=== PATIENT | female | born 1985 | race Caucasian/White ===

== ENCOUNTER 2021-01-05 12:24 | Emergency (ER) | payer SELFPAY ==
[~2021-01-05] VITALS: Ht 162.5 cm; Wt 110.2 kg
[~2021-01-05 12:24] MED LIST: LEVOFLOXACIN500 MG PO; PRILOSEC20 MG PO; ZOFRAN4 MG PO
[2021-01-05 13:13] LABS: BASO # 0.1 10*3/uL (0.0-0.1); BASO % 0.8 % (0.0-1.0); EOS # 0.1 10*3/uL (0.0-0.4); EOS % 1.1 % (1.0-4.0); HEMATOCRIT 41.2 % (37.0-47.0); LYMPH # 2.3 10*3/uL (1.3-4.4); LYMPH % 22.5 % (27.0-41.0); MEAN CELL VOLUME 91.4 fl (81.0-99.0); MEAN CORPUSCULAR HGB 28.4 pg (27.0-31.0); MEAN CORPUSCULAR HGB CONC 31.1 g/dl (33.0-37.0); MEAN PLATELET VOLUME 9.2 fl (9.6-12.3); MONO # 0.6 10*3/uL (0.1-1.0); MONO % 5.7 % (3.0-9.0); NEUT # 7.1 10*3/uL (2.3-7.9); NEUT % 69.6 % (47.0-73.0); PLATELET COUNT AUTOMATED 478 10*3/uL (130-400); RED BLOOD COUNT 4.51 10*6/uL (4.10-5.10); RED CELL DISTRI WIDTH 12.9 % (0-14.5); WHITE BLOOD COUNT 10.2 10*3/uL (4.8-10.8)
[2021-01-05 13:20] LABS: BILIRUBIN Negative (Negative); BLOOD 2+ (Negative); CLARITY Clear (Clear); COLOR Yellow (Yellow); GLUCOSE Negative (Negative); KETONE Negative (Negative); LEUKO ESTERASE 1+ (Negative); NITRITE Negative (Negative); UROBILINOGEN 0.2 E.U./dl (0.0-1.0)
[2021-01-05 13:29] LABS: ACT PARTIAL THROMBO TIME 26.1 SECONDS (20.0-32.1); INTERNATIONAL NORM RATIO 0.9 (2.0-3.5)
[2021-01-05 13:32] LABS: ALKALINE PHOSPHATASE 84 U/L (45-117); BUN 15 mg/dl (7-24); CHLORIDE 107 mmol/L (98-107); CREATININE 0.66 mg/dL (0.55-1.02); POTASSIUM 4.4 mmol/L (3.5-5.1); SGOT/AST 18 IU/L (3-35); SGPT/ALT 38 U/L (12-78); SODIUM 142 mmol/L (136-145); TOTAL PROTEIN 8.3 gm/dL (6.4-8.2)
[2021-01-05 13:38] LABS: BACTERIA 4+; EPITHELIAL CELLS 21-30; RBC 21-30 rbc/hpf (0-2); WBC 31-40 wbc/hpf (0-5)
[2021-01-05] MEDS ORDERED: LEVOFLOXACIN750 M2 PO (16:29)
[2021-01-05] MEDS ORDERED: PREDNISONE50 MG PO (16:30)
== END 2021-01-05 16:57 | disposition home or self-care (01) ==
LOC: ED 12:24
PROVIDERS: Nurse Practitioner
DX: N39.0 Urinary tract infection, site not specified (principal); Z88.6 Allergy status to analgesic agent; Z79.899 Other long term (current) drug therapy

== ENCOUNTER 2021-01-12 11:57 | Observation (INO) | payer SELFPAY ==
[~2021-01-12] VITALS: Ht 162.6 cm; Wt 114.8 kg
[~2021-01-12 11:57] MED LIST changes: +LEVOFLOXACIN750 M2 PO; +PREDNISONE50 MG PO
[2021-01-12 12:09] VITALS: BP 124/65
[2021-01-12 13:12] LABS: BASO # 0.1 10*3/uL (0.0-0.1); BASO % 0.7 % (0.0-1.0); EOS # 0.4 10*3/uL (0.0-0.4); EOS % 2.3 % (1.0-4.0); HEMATOCRIT 42.9 % (37.0-47.0); LYMPH # 3.2 10*3/uL (1.3-4.4); MEAN CELL VOLUME 90.3 fl (81.0-99.0); MEAN CORPUSCULAR HGB 28.6 pg (27.0-31.0); MEAN CORPUSCULAR HGB CONC 31.7 g/dl (33.0-37.0); MONO # 1.2 10*3/uL (0.1-1.0); MONO % 7.1 % (3.0-9.0); NEUT # 11.6 10*3/uL (2.3-7.9); NEUT % 69.4 % (47.0-73.0); PLATELET COUNT AUTOMATED 507 10*3/uL (130-400); RED BLOOD COUNT 4.75 10*6/uL (4.10-5.10); RED CELL DISTRI WIDTH 13.2 % (0-14.5); WHITE BLOOD COUNT 16.8 10*3/uL (4.8-10.8)
[2021-01-12 13:21] LABS: BILIRUBIN Negative (Negative); BLOOD Negative (Negative); CLARITY Clear (Clear); COLOR Yellow (Yellow); GLUCOSE Negative (Negative); KETONE Trace (Negative); LEUKO ESTERASE Trace (Negative); NITRITE Negative (Negative); SPECIFIC GRAVITY 1.025 (1.001-1.030); UROBILINOGEN 0.2 E.U./dl (0.0-1.0)
[2021-01-12 13:23] LABS: ACT PARTIAL THROMBO TIME 23.5 SECONDS (20.0-32.1); INTERNATIONAL NORM RATIO 0.9 (2.0-3.5)
[2021-01-12 13:28] LABS: ALBUMIN 3.3 gm/dl (3.1-4.5); ALKALINE PHOSPHATASE 68 U/L (45-117); BUN 17 mg/dl (7-24); CHLORIDE 104 mmol/L (98-107); CREATININE 0.69 mg/dL (0.55-1.02); LIPASE 47 U/L (73-393); POTASSIUM 4.3 mmol/L (3.5-5.1); SGOT/AST 24 IU/L (3-35); SGPT/ALT 53 U/L (12-78); SODIUM 137 mmol/L (136-145); TOTAL PROTEIN 7.3 gm/dL (6.4-8.2)
[2021-01-12 13:32] LABS: TROPONIN I < 0.015 ng/ml (<0.045)
[2021-01-12 13:33] LABS: BACTERIA 3+
[2021-01-12 14:43] VITALS: BP 113/56
[2021-01-12 16:20] VITALS: BP 142/43
[2021-01-12 16:45] VITALS: BP 127/70
[2021-01-12 20:00] VITALS: BP 121/62
[2021-01-13] VITALS: BP 123/70
[2021-01-13 06:25] LABS: HEMATOCRIT 38.4 % (37.0-47.0); MEAN CELL VOLUME 88.9 fl (81.0-99.0); MEAN CORPUSCULAR HGB 28.5 pg (27.0-31.0); MEAN PLATELET VOLUME 9.3 fl (9.6-12.3); PLATELET COUNT AUTOMATED 471 10*3/uL (130-400); RED BLOOD COUNT 4.32 10*6/uL (4.10-5.10); RED CELL DISTRI WIDTH 13.2 % (0-14.5); WHITE BLOOD COUNT 24.9 10*3/uL (4.8-10.8)
[2021-01-13 06:40] LABS: BUN 20 mg/dl (7-24); CHLORIDE 105 mmol/L (98-107); SODIUM 136 mmol/L (136-145)
[2021-01-13 06:52] LABS: CHOLESTEROL 215 mg/dL (<200); HDL CHOLESTEROL 64 mg/dl (40-60); LDL CHOLESTEROL 117 mg/dL (9-159); THYROID STIM HORMONE (HS) 0.813 uIU/ml (0.358-4.75); TRIGLYCERIDES 168 mg/dl (<150); VLDL CHOLESTEROL 34 mg/dL (6-40)
[2021-01-13 07:39] LABS: PLATELET SUFFICIENCY HIGH (NORMAL); TOTAL CELLS COUNTED 100 #CELLS
[2021-01-13 08:00] VITALS: BP 116/54
[2021-01-13 12:00] VITALS: BP 121/68
[2021-01-13] MEDS ORDERED: PREDNISONE50 MG PO (15:12)
== END 2021-01-13 14:33 | disposition home or self-care (01) ==
LOC: ED 11:57 → EDHOLD 15:40 → 4E 16:21
PROVIDERS: Family Medicine; Physician Assistant; ADMIT Internal Medicine; ATTEND Internal Medicine
DX: R07.2 Precordial pain (principal); Z20.822 Contact with and (suspected) exposure to COVID-19; F41.9 Anxiety disorder, unspecified; R01.1 Cardiac murmur, unspecified; J18.9 Pneumonia, unspecified organism; R91.1 Solitary pulmonary nodule; R06.00 Dyspnea, unspecified; D72.821 Monocytosis (symptomatic); R79.82 Elevated C-reactive protein (CRP); D47.3 Essential (hemorrhagic) thrombocythemia; Z98.890 Other specified postprocedural states

== ENCOUNTER → 2021-10-11 | Outpatient (CLI) | payer OTHER | END | disposition home or self-care (01) | LOC: COVID19 15:29 | PROVIDERS: ATTEND Internal Medicine | DX: U07.1 COVID-19 (principal) ==

== ENCOUNTER → 2022-12-13 | Outpatient (CLI) | payer OTHER | END | disposition home or self-care (01) | LOC: LAB 07:05 | PROVIDERS: ATTEND Nurse Practitioner | DX: R19.7 Diarrhea, unspecified (principal) ==

== ENCOUNTER → 2023-08-13 | Outpatient (CLI) | payer OTHER | END | disposition home or self-care (01) | LOC: CT 15:52 | PROVIDERS: ATTEND Nurse Practitioner | DX: R91.1 Solitary pulmonary nodule (principal) ==

== ENCOUNTER → 2024-07-28 | Outpatient (CLI) | payer OTHER ==
[2024-07-28 14:01] LABS: HEMATOCRIT 41.8 % (37.0-47.0); MEAN CELL VOLUME 93.7 fl (81.0-99.0); MEAN CORPUSCULAR HGB 29.6 pg (27.0-31.0); MEAN CORPUSCULAR HGB CONC 31.6 g/dl (33.0-37.0); MEAN PLATELET VOLUME 8.8 fl (9.6-12.3); PLATELET COUNT AUTOMATED 440 10*3/uL (130-400); RED BLOOD COUNT 4.46 10*6/uL (4.10-5.10); RED CELL DISTRI WIDTH 13.2 % (0-14.5); WHITE BLOOD COUNT 16.1 10*3/uL (4.8-10.8)
[2024-07-28 14:14] LABS: MANUAL DIFF REFLEX YES
[2024-07-28 14:30] LABS: ALKALINE PHOSPHATASE 64 U/L (46-116); BUN 18 mg/dl (9-23); CHLORIDE 102 mmol/L (98-107); POTASSIUM 4.2 mmol/L (3.4-5.1); SGPT/ALT 14 U/L (5-49); TOTAL PROTEIN 7.3 gm/dL (6.0-8.0)
[2024-07-28 14:31] LABS: VITAMIN D, 25-HYDROXY 23.1 ng/mL (30-100)
[2024-07-28 14:47] LABS: BASOPHILS 1 % (0-1); TOTAL CELLS COUNTED 100 #CELLS
[2024-07-28 14:48] LABS: BURR CELLS FEW; PLATELET SUFFICIENCY HIGH (NORMAL)
[2024-07-29 08:10] LABS: HEPATITIS B SURFACE AB Non Reactive (.); HEPATITIS B SURFACE AG Negative (Negative)
[2024-07-30 21:06] LABS: TB1 Ag VALUE 0.01 IU/mL (.)
== END | disposition home or self-care (01) ==
LOC: LAB 13:40
DX: K52.9 Noninfective gastroenteritis and colitis, unspecified (principal)

== ENCOUNTER → 2024-11-07 | Outpatient (CLI) | payer OTHER | END | disposition home or self-care (01) | LOC: LAB 07:20 | PROVIDERS: ATTEND Nurse Practitioner Family | DX: E53.8 Deficiency of other specified B group vitamins (principal) ==

== ENCOUNTER → 2024-12-05 | Outpatient (CLI) | payer OTHER ==
[~2024-12-05] MED LIST changes: +IOHEXOL 300 MG/ML 100 ML VIAL IV ONE; +MANNITOL IV ONE; +STERILE IV ONE; +WATER IV ONE
== END ==
LOC: CT 03:45
PROVIDERS: ATTEND Nurse Practitioner Family
DX: K50.018 Crohn's disease of small intestine with other complication (principal)

== ENCOUNTER → 2024-12-31 | Outpatient (CLI) | payer OTHER ==
[~2024-12-31] MED LIST changes: -IOHEXOL 300 MG/ML 100 ML VIAL IV ONE; -MANNITOL IV ONE; -STERILE IV ONE; -WATER IV ONE
[2024-12-31 15:19] LABS: BASO # 0.1 10*3/uL (0.0-0.1); BASO % 0.6 % (0.0-1.0); EOS # 0.3 10*3/uL (0.0-0.4); EOS % 2.9 % (1.0-4.0); HEMATOCRIT 38.1 % (37.0-47.0); MEAN CELL VOLUME 90.1 fl (81.0-99.0); MEAN CORPUSCULAR HGB 28.4 pg (27.0-31.0); MEAN CORPUSCULAR HGB CONC 31.5 g/dl (33.0-37.0); MEAN PLATELET VOLUME 8.8 fl (9.6-12.3); MONO # 0.8 10*3/uL (0.1-1.0); NEUT # 6.8 10*3/uL (2.3-7.9); NEUT % 65.7 % (47.0-73.0); PLATELET COUNT AUTOMATED 444 10*3/uL (130-400); RED BLOOD COUNT 4.23 10*6/uL (4.10-5.10); RED CELL DISTRI WIDTH 12.8 % (0-14.5); WHITE BLOOD COUNT 10.4 10*3/uL (4.8-10.8)
[2024-12-31 15:45] LABS: ALKALINE PHOSPHATASE 75 U/L (46-116); BUN 12 mg/dl (9-23); CHLORIDE 104 mmol/L (98-107); POTASSIUM 4.3 mmol/L (3.4-5.1); SGPT/ALT 28 U/L (5-49)
== END | disposition home or self-care (01) ==
LOC: LAB 15:02
PROVIDERS: ATTEND Nurse Practitioner Family
DX: K50.018 Crohn's disease of small intestine with other complication (principal)